=== PATIENT | male | born 1995 | race Caucasian/White ===

== ENCOUNTER 2024-03-22 19:02 | Emergency (ER) | payer OTHER, SELFPAY ==
--- NOTE | ~2024-03-22 | XR_ITS ---
EXAMINATION: XR chest 2V Exam Date/Time: 03/22/2024 20:05 CDT HISTORY: fever,cough,nausea Comparison: None. RESULT: Lines, tubes, and devices: None. Lungs and pleura: Clear. Cardiomediastinal silhouette: Normal. Other: No acute osseous or upper abdominal finding. IMPRESSION: No acute cardiopulmonary process. Reviewed, dictated and finalized at location K.
[2024-03-22 19:16] VITALS: BP 141/82; PULSE 86; RESP 20; TEMP 36.8; O2SAT 100
--- NOTE | 2024-03-22 19:55 | ED.FEVER ---
HPI - Fever General Chief Complaint: Upper Respiratory Infection Stated Complaint: fever/nausea/headache/sleepy Time Seen by Provider: 03/22/24 19:55 Source: patient, RN notes reviewed and old records reviewed Mode of arrival: ambulatory Limitations: no limitations History of Present Illness HPI Narrative: 28year old male who presents to [facility] care with complaints of fever, nausea,vomiting, cough and headache with some body aches for the past 3 days. Patient reports that he did have a fever up to 102F last night, none noted today, has had symptoms since Thursday and has had to call off work for the past 2 day. He reports that he has been drinking water and Gatorade,reports some decrease in his appetite. Patient reports that he feels sleepy and worn out. MD elicited complaint: fever, malaise and other (cough, vomiting headache) Pertinent past history: other (crohns) Onset (ago): day(s) (3) Associated symptoms: myalgias, headache, cough, nausea and vomiting Related Data Allergies Allergy/AdvReac Type Severity Reaction Status Date / Time ibuprofen Allergy Unknown Ulcers Verified 03/22/24 19:27 Review of Systems Review of Systems: CONSTITUTIONAL: reports malaise, chills, sweats, or fever. EYES: Denies visual changes, redness, or discharge. ENT: Reports rhinorrhea, congestion, sinus pain, no otalgia and no sore throat. CARDIOVASCULAR: Denies chest pain, palpitations, or edema. RESPIRATORY: Reports cough.? Denies dyspnea. GASTROINTESTINAL: Denies abdominal pain,positive for nausea, vomiting,no diarrhea SKIN: Denies rash or itching. MUSCULOSKELETAL: reports myalgia. NEUROLOGIC: Reports headache. All systems reviewed & are unremarkable except as noted in HPI and below PMFSH Past Medical History Medical History Colitis History of Crohn's disease Surgical History Surgical History H/O total colectomy Social History Social History Smoking status: Never smoker Alcohol intake: current Alcohol use details: rare Substance use type: does not use Gender identity (if verbalized by the patient): Male Comments At time of signature, agree with nursing past medical, surgical, social and family history. There is no relevant family history pertinent to the presenting complaint Exam Narrative: GENERAL: Well-appearing, well-nourished, and in no acute distress. HEAD: Normocephalic EYES: PERRLA, conjunctivae clear ENT: Nares clear, turbinates edematous and erythematous, clear discharge. Mucous membranes moist. TM pearly romero with dull light reflex bilaterally; no tragal tenderness. Oropharynx erythematous without lesions. Tonsils not enlarged and without exudate, no drooling, no hoarseness, no trismus, uvula midline.post nasal discharge NECK: Supple. No lymphadenopathy CHEST: Clear to auscultation, breath sounds equal. No wheezing, rhonchi, rales, or stridor. No respiratory distress, speaks in full sentences.cough SAO2 100% on room air HEART: Regular rate and rhythm. No murmur heard. SKIN: Warm, dry, no rash. NEURO: Alert and oriented x3. PSYCH: Normal mood and affect Course Course Emergency Course: Patient is aware of diagnosis, understands and agrees to treatment plan.? Anticipatory guidance given.? Patient agrees to follow-up as directed and is aware of reasons to seek care at the emergency department. Portions of this record may have been created with voice recognition software Level of Care: Express Care Visit Vital Signs Vital signs: Vital Signs Temperature 36.8 C 03/22/24 19:16 Pulse Rate 86 03/22/24 19:16 Respiratory Rate 20 03/22/24 19:16 Blood Pressure 141/82 H 03/22/24 19:16 Pulse Oximetry 100 03/22/24 19:16 Oxygen Delivery Room Air 03/22/24 19:16 Temperature 36.8 C 03/22/24 19:16
== END 2024-03-22 20:52 | disposition home or self-care (01) ==
PROVIDERS: Emergency Provider Registered Nurse
DX: B34.9 Viral infection, unspecified (principal); Z20.822 Contact with and (suspected) exposure to COVID-19; K50.90 Crohn's disease, unspecified, without complications
CPT/HCPCS: 71046; 87426; 99213; G0463